=== PATIENT | female | born 1995 | race Caucasian/White ===

== ENCOUNTER → 2018-02-03 | Day surgery (SDC) | payer OTHER | END | disposition home or self-care (01) | LOC: CIR.AMB 07:06 | DX: O02.1 Missed abortion (principal) ==

== ENCOUNTER 2018-08-04 11:25 | Day surgery (SDC) | payer OTHER | END 2018-08-04 15:00 | disposition home or self-care (01) | LOC: CIR.AMB 11:25 | DX: O02.1 Missed abortion (principal); Z3A.01 Less than 8 weeks gestation of pregnancy ==